=== PATIENT | male | born 1935 | race Caucasian/White ===

== ENCOUNTER 2023-03-24 13:28 | Emergency (ER) | payer OTHER, SELFPAY ==
[2023-03-24 13:33] VITALS: BP 123/66; PULSE 66; RESP 15; TEMP 36.3; O2SAT 94; BMI 24.3
--- NOTE | 2023-03-24 13:37 | DI.CT.S_ITS ---
PROCEDURE: CT CERVICAL SPINE WO CON INDICATIONS: fall on xarelto TECHNIQUE: Noncontrast 3 mm thick sections acquired from the skull base to the T4 level. Sagittal and coronal reformats were then constructed. For radiation dose reduction, the following was used: automated exposure control, adjustment of mA and/or kV according to patient size. COMPARISON: None. FINDINGS: Image quality: Excellent. Bones: No fractures or dislocations. Visualized superior ribs are intact. 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 Multilevel cervical facet arthropathy. Multilevel bony foraminal narrowing. Soft tissues: Prevertebral soft tissues are normal in thickness. No paravertebral hematomas. No apical pneumothoraces. IMPRESSION: 1. No cervical fracture or dislocation noted. 2. 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 3. 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 Dictated by: Alvaro Dickinson M.D. on 03/24/2023 at 14:31 Approved by: Avlaro Dickinson M.D. on 03/24/2023 at 14:34
--- NOTE | 2023-03-24 13:37 | DI.CT.S_ITS ---
PROCEDURE: CT HEAD/BRAIN WO CON INDICATIONS: fall on Xarelto TECHNIQUE: Noncontrast 4.5 mm thick angled axial sections acquired from the foramen magnum to the vertex, with coronal and sagittal reformats. For radiation dose reduction, the following was used: automated exposure control, adjustment of mA and/or kV according to patient size. COMPARISON: [facility], CT, CT BRAIN WO CON, 03/18/2017, 12:02. [facility], CT, CT CERVICAL SPINE WO CON, 03/24/2023, 13:58. [facility], CR, XR FINGER LT MIN 2V, 03/24/2023, 13:35. [facility], CT, CT HEAD WITHOUT CONTRAST, 07/17/2021, 8:52. FINDINGS: Image quality: Mild streak artifact can be seen through the skull base. CSF spaces: Basal cisterns are patent. No extra-axial fluid collections. The ventricles are symmetric in size and shape. Brain: No intracranial bleeds or masses. There is cerebral volume loss for age, with resultant ventricular and sulcal prominence. There are periventricular and deep white matter chronic small vessel ischemic changes. There is intracranial internal carotid artery atherosclerosis. Skull and face: Calvarium and visualized facial bones appear intact, without suspicious lesions. Sinuses: Visualized sinuses and mastoids are clear. IMPRESSION: No acute intracranial hemorrhage is seen. No acute intracranial process is seen. Dictated by: Tay Dominguez M.D. on 03/24/2023 at 13:18 Approved by: Tay Dominguez M.D. on 03/24/2023 at 13:20
--- NOTE | 2023-03-24 13:39 | DI.RAD.S_ITS ---
PROCEDURE: XR FINGER LT MIN 2V INDICATIONS: fall TECHNIQUE: AP hand, 2 views of the 3rd finger(s) acquired. COMPARISON: [facility], CT, CT HEAD/BRAIN WO [facility], 03/24/2023, 13:58. [facility], CT, CT CERVICAL SPINE WO [facility], 03/24/2023, 13:58. FINDINGS: Bones: No displaced fracture of the 3rd finger can be seen. No fractures or dislocations are seen elsewhere. No suspicious bony lesions. Soft tissues: No suspicious soft tissue calcifications. IMPRESSION: Negative for displaced fracture by plain film. Dictated by: Tay Dominguez M.D. on 03/24/2023 at 13:20 Approved by: Tay Dominguez M.D. on 03/24/2023 at 13:22
[2023-03-24] MEDS: TET,DIPH,PERTUSS(ACELL),VAC/PF 0.5 ML SYRINGE IM (15:05)
--- NOTE | 2023-03-24 15:50 | ED.FALL ---
HPI - Fall <JOSE Ivy - Last Filed: 03/24/23 15:58> General Chief Complaint: Fall Stated Complaint: fell lac on head bleeding Time Seen by Provider: 03/24/23 15:01 Source: patient Mode of arrival: Ambulatory History of Present Illness HPI Narrative: This is an 88-year-old gentleman who is not anticoagulated who is out walking today and tripped on the concrete falling forward striking his face on the concrete. He did not have loss of consciousness, denies any neck pain, has an abrasion on his forehead with some bleeding, pressure dressing was applied. He denies vision changes, dizziness, lightheadedness, or neck pain. He states that he does not remember when his last tetanus was, he has a laceration on his left 3rd index finger on the palmar aspect. Related Data Allergies Allergy/AdvReac Type Severity Reaction Status Date / Time No Known Drug Allergies Allergy Verified 03/24/23 13:33 Review of Systems <JOSE Ivy - Last Filed: 03/24/23 15:58> Review of Systems ROS Unobtainable: All systems reviewed & are unremarkable except as noted in HPI and below Patient History <JOSE Ivy - Last Filed: 03/24/23 15:58> Social History Smoking Status: Unknown if ever smoked Smoking Status: Unknown if ever smoked alcohol intake frequency: holidays/special occasions only Substance Use Type: does not use Exam <JOSE Ivy - Last Filed: 03/24/23 15:58> Narrative Exam Narrative: Reviewed vitals signs and nursing notes. General: Pleasant, sitting upright, in no acute distress, well groomed, afebrile HEENT: symmetrical facial expressions, moist mucous membranes, neck is supple, nontender over her cervical spine, full range of motion, head with abrasion on the left side proximally 4 cm x 4 cm, a small laceration in the middle of the abrasion proximally 1 cm. Three non dissolvable sutures were placed after wound cleansing Skin: brisk capillary refill,, left hand 3rd digit has laceration on the palmar aspect over the PIP joint proximally 2 cm, no suspected tendon injury, patient has flexion-extension isolated each joint in his thoroughly intact. Denies any range of motion abnormalities or numbness and tingling., brisk cap refill. Neuro: clear speech and normal cognition, A&O x3, GCS 15, no focal motor or sensation deficits Initial Vital Signs Initial Vital Signs: Vital Signs Temperature 97.4 F L 03/24/23 13:33 Pulse Rate 66 03/24/23 13:33 Respiratory Rate 15 03/24/23 13:33 Blood Pressure 123/66 03/24/23 13:33 Pulse Oximetry 94 03/24/23 13:33 Oxygen Delivery Method Room Air 03/24/23 13:33 <Jarad Holman MD - Last Filed: 03/29/23 08:42> Initial Vital Signs Initial Vital Signs: Vital Signs Temperature 97.4 F L 03/24/23 13:33 Pulse Rate 66 03/24/23 13:33 Respiratory Rate 15 03/24/23 13:33 Blood Pressure 123/66 03/24/23 13:33 Pulse Oximetry 94 03/24/23 13:33 Oxygen Delivery Method Room Air 03/24/23 13:33 Procedures <JOSEPH IvyP - Last Filed: 03/24/23 15:58> Laceration Repair Laceration 1: Site: face Side (If applicable): left Size (cm): 1 Description: stellate and irregular Depth: simple, single layer Local Anesthetic: lidocaine 2% and with epi Amount of anesthesia used (mL): 2 Pre-repair: wound explored, irrigated extensively and deep structures intact Skin layer closed with: vicryl Skin layer suture size: 5-0 Number of sutures: 3 Technique: simple, interrupted Laceration 2: Site: hand (Third digit) Side (If applicable): left Size (cm): 2 Description: linear and irregular Depth: simple, single layer Local Anesthetic: lidocaine 2% and with epi Amount of anesthesia used (mL): 3 Pre-repair: wound explored, irrigated extensively and deep structures intact Skin layer closed with: nylon Skin layer suture size: 5-0 Number of sutures: 8 Technique: simple, interrupted Course <JOSE Ivy - Last Filed: 03/24/23 15:58> Orders Ordered: Discontinued Medications Diphtheria/Tetanus/Acell Pertussis (Tet,Diph,Pertuss(Acell),Vac/Pf 0.5 Ml Syringe) 0.5 ml IM .ONCE ONE Stop: 03/24/23 14:58 Last Admin: 03/24/23 15:05 Dose: 0.5 ml Documented By: AMU Vital Signs Vital signs: Vital Signs - 8 hr 03/24/23 13:33 Temperature 97.4 F L Pulse Rate 66 Respiratory Rate 15 Blood Pressure 123/66 Pulse Oximetry 94 Oxygen Delivery Method Room Air <Jarad Holman MD - Last Filed: 03/29/23 08:42> Orders Ordered: Discontinued Medications Diphtheria/Tetanus/Acell Pertussis (Tet,Diph,Pertuss(Acell),Vac/Pf 0.5 Ml Syringe) 0.5 ml IM .ONCE ONE Stop: 03/24/23 14:58 Last Admin: 03/24/23 15:05 Dose: 0.5 ml Documented By: AMU Vital Signs Vital signs: Vital Signs - 8 hr 03/24/23 13:33 Temperature 97.4 F L Pulse Rate 66 Respiratory Rate 15 Blood Pressure 123/66 Pulse Oximetry 94 Oxygen Delivery Method Room Air MDM - Fall <JOSE Ivy - Last Filed: 03/24/23 15:58> Imaging Data CT scan - head: Radiologist's Impression: [place] [id number] CT Scan Report Signed Patient: Lei Velazquez MR#: [id number] : 1935 Acct:[id number] Age/Sex: 88 / M Date of Service: 03/24/23 Loc: ED Accession Number: [id number] ?? Procedure: CT head/brain wo con Ordering Provider: Jarad Holman MD PROCEDURE:? CT HEAD/BRAIN WO CON ? INDICATIONS:? fall on Xarelto ? TECHNIQUE:? Noncontrast 4.5 mm thick angled axial sections acquired from the foramen magnum to the vertex, with coronal and sagittal reformats.? For radiation dose reduction, the following was used:? automated exposure control, adjustment of mA and/or kV according to patient size.? ? COMPARISON:? [facility], CT, CT BRAIN WO CON, 03/18/2017, 12:02.? [facility], CT, CT CERVICAL SPINE WO CON, 03/24/2023, 13:58.? [facility], CR, XR FINGER LT MIN 2V, 03/24/2023, 13:35.? [facility], CT, CT HEAD WITHOUT CONTRAST, 07/17/2021, 8:52. ? FINDINGS:? Image quality:? Mild streak artifact can be seen through the skull base. ? CSF spaces:? Basal cisterns are patent.? No extra-axial fluid collections.? The ventricles are symmetric in size and shape.? ? Brain:? No intracranial bleeds or masses.? There is cerebral volume loss for age, with resultant ventricular and sulcal prominence.? There are periventricular and deep white matter chronic small vessel ischemic changes.? There is intracranial internal carotid artery atherosclerosis.? ? Skull and face:? Calvarium and visualized facial bones appear intact, without suspicious lesions.? ? Sinuses:? Visualized sinuses and mastoids are clear.? ? ? IMPRESSION:? No acute intracranial hemorrhage is seen.? ? No acute intracranial process is seen.? ? ? Dictated by: Tay Dominguez M.D. on 03/24/2023 at 13:18 ? ? Approved by: Tay Dominguez M.D. on 03/24/2023 at 13:20 ? Extremity x-ray #1: Radiologist's Impression: [facility] [id number] XRay Report Signed Patient: Lei Velazquez MR#: [id number] : 1935 Acct:[id number] Age/Sex: 88 / M Date of Service: 03/24/23 Loc: ED Accession Number: [id number] ?? Procedure: XR finger LT min 2V Ordering Provider: Jarad Holman MD PROCEDURE:? XR FINGER LT MIN 2V ? INDICATIONS:? fall ? TECHNIQUE:? AP hand, 2 views of the 3rd finger(s) acquired.? ? COMPARISON:? [facility], CT, CT HEAD/BRAIN WO CON, 03/24/2023, 13:58.? [facility], CT, CT CERVICAL SPINE WO CON, 03/24/2023, 13:58. ? FINDINGS:? ? Bones:? No displaced fracture of the 3rd finger can be seen.? No fractures or dislocations are seen elsewhere.? No suspicious bony lesions.? ? Soft tissues:? No suspicious soft tissue calcifications.? IMPRESSION:? Negative for displaced fracture by plain film. ? ? Dictated by: Tay Dominguez M.D. on 03/24/2023 at 13:20 ? ? Approved by: Tay Dominguez M.D. on 03/24/2023 at 13:22 ? CT - cervical spine: Radiologist's Impression: [address] [place] [address] CT Scan Report Signed Patient: Lei Velazquez MR#: [id number] : 1935 Acct:[id number] Age/Sex: 88 / M Date of Service: 03/24/23 Loc: ED Accession Number: [id number] ?? Procedure: CT cervical spine wo con Ordering Provider: Jarad Holman MD PROCEDURE:? CT CERVICAL SPINE WO CON ? INDICATIONS:? fall on xarelto ? TECHNIQUE:? Noncontrast 3 mm thick sections acquired from the skull base to the T4 level.? Sagittal and coronal reformats were then constructed.? For radiation dose reduction, the following was used:? automated exposure control, adjustment of mA and/or kV according to patient size.? ? COMPARISON:? None. ? FINDINGS:? Image quality:? Excellent.? ? Bones:? No fractures or dislocations.? Visualized superior ribs are intact.? 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 Multilevel cervical facet arthropathy.? Multilevel bony foraminal narrowing. ? Soft tissues:? Prevertebral soft tissues are normal in thickness.? No paravertebral hematomas.? No apical pneumothoraces.? ? ? IMPRESSION:? ? 1. No cervical fracture or dislocation noted. ? 2. 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 ? 3. 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 ? Dictated by: Alvaro Dickinson M.D. on 03/24/2023 at 14:31 ? ? Approved by: Alvaro Dickinson M.D. on 03/24/2023 at 14:34 ? MDM Narrative Medical decision making narrative: Chief Complaint: Fall with head injury, laceration Primary historian: Patient Multiple etiologies for patient's complaint considered including, but not limited to: Skin laceration, tendon injury, vascular injury, skull fracture, intracranial hemorrhage, subdural I have independently reviewed the patient's vital signs and nursing notes as well as prior records if available. My interpretation of imaging: Hemorrhage head CT negative for acute intracranial abnormalities, cervical spine CT shows no cervical fracture dislocation, finger x-ray shows no acute fracture dislocation. Course of care: On exam, patient has a laceration to his left forehead and left 3rd digit, these were repaired and were hemostatic afterwards. Applied a Band-Aid after good wound cleansing to both wounds. Patient tolerated this well. He understands to rest today, return to the emergency department for any abnormal behavior, mentation, weakness or vomiting. Wounds with no further bleeding after suture repair. He will have his sutures removed in 2 days for the left finger and the non dissolvable sutures in his forehead can stay in place. Social considerations that may affect disposition: none Questions are addressed and there is agreement with the plan and for follow-up. I consulted with the ED attending physician Dr. Kim as needed for higher level of care considerations and they were available for discussion and recommendations regarding plan of care and diagnostic testing. Patient is appropriate for outpatient management. #[id number] - Emergency Medicine: Utilization of CT for Minor Blunt Head Trauma (Adult) Patient is 18 or older, presenting with minor blunt head trauma. Head CT (including cosigned orders) was ordered by an emergency adult caregiver for trauma because the patient: [ ] is vomiting\ severe/dangerous mechanism of injury was identified [ ] is experiencing a severe headache [ ] sustained loss of consciousness [ ] GCS less than 15 [ ] is experiencing amnesia of the event or focal neurologic deficit [ ] sustained injury above the clavicles [x ] is suspected of taking anticoagulant medications [ x] is 65 years or older [ ] is intoxicated Patient has one or more of the following conditions that are excluded from the measure: [ ] Patient has ventricular shunt [ ] Patient has brain tumor [ ] Patient is [ ] Patient has multi-system trauma [ ] Patient taking an antiplatelet medication (excluding aspirin) Discharge Plan Departure Patient Disposition: Home Clinical Impression: Fall on concrete Head injury due to trauma Qualifiers: Encounter type: initial encounter Qualified Code(s): S09.90XA - Unspecified injury of head, initial encounter Laceration of face Qualifiers: Encounter type: initial encounter Qualified Code(s): S01.81XA - Laceration without foreign body of other part of head, initial encounter Finger laceration Qualifiers: Encounter type: initial encounter Finger: middle finger Damage to nail status: without damage Foreign body presence: without foreign body Laterality: left Qualified Code(s): S61.213A - Laceration without foreign body of left middle finger without damage to nail, initial encounter Instructions: DI for Laceration Repair -- Finger Activity Restrictions/Additional Instructions: *You have been diagnosed with a significant fall, you likely have a concussion, and lacerations requiring repair. You received a tetanus today, you do not need another 1 for 10 years. You have non dissolvable sutures in your hand as well as a few dissolvable ones. In 10 days, please have your sutures removed in your hand, it is okay to let the ones in your forehead fall out or trim them after 5 days. Please apply topical antibiotic ointment and a Band-Aid to this wound on your forehead, this will take a while to heal. Sorry for your abrasion. Please drink plenty of water, rest, if you have any concerning symptoms like nausea, vomiting, feeling faint, or persistent headache, please come back to the emergency department. I wish you many more wonderful years together. *What to do: *Please continue to take your regular medications as directed. [ ] New medication prescriptions sent to your pharmacy: [ ] [ ] New medication written as a paper prescription [x ] No new medications given *Please call and schedule follow up with your primary care provider in 2-3 days, at least for an update. Let them know you were seen in the Emergency Department for the above problem. We will electronically transmit a record of today's note if your PCP or specialist is in our system. *If you do not have a primary care provider please contact [phone] to establish care with one of the [facility] primary care providers. *Return to the Emergency Department for worsening symptoms, inability to keep liquids down, fever greater than 101F, chills, or other concerning symptom. Referrals: Jolynn Joe MD [Primary Care Provider] - Stand Alone Forms: Patient Portal/API <Jarad Holman MD - Last Filed: 03/29/23 08:42> [facility] Cosbaldomeroature Attestation: I was immediately available in the department for consultation. ?This documentation has been reviewed and I agree with assessment and plan. Supervised by Jarad Holman MD
[2023-03-24 15:57] VITALS: BP 130/65; PULSE 65; RESP 18; O2SAT 95
== END 2023-03-24 15:55 | disposition home or self-care (01) ==
PROVIDERS: Emergency Provider Nurse Practitioner Critical Care Medicine; PCP Internal Medicine
DX: S01.81XA Laceration without foreign body of other part of head, initial encounter (principal); S61.213A Laceration without foreign body of left middle finger without damage to nail, initial encounter; S09.90XA Unspecified injury of head, initial encounter; W01.0XXA Fall on same level from slipping, tripping and stumbling without subsequent striking against object, initial encounter; Z79.01 Long term (current) use of anticoagulants; Z23 Encounter for immunization
CPT/HCPCS: 12001; 12011; 70450; 72125; 73140; 90471; 99283; 99284; 90715